=== PATIENT | male | born 1975 | race Caucasian/White ===

== ENCOUNTER 2022-11-01 20:01 | Emergency (ER) | payer OTHER, SELFPAY ==
[2022-11-01 20:03] VITALS: BP 146/76; PULSE 85; RESP 20; TEMP 36.2; O2SAT 100
[2022-11-01] MEDS: KETOROLAC (*BKC) 60 MG/2 ML VIAL IM (21:51)
--- NOTE | 2022-11-01 22:25 | ED.LOWEXIN ---
HPI - Extremity Injury (Lower) General Chief Complaint: Extremity Injury, Lower Stated Complaint: left leg injury Time Seen by Provider: 11/01/22 20:51 Source: patient Mode of arrival: ambulatory Limitations: no limitations History of Present Illness HPI Narrative: Patient is a 47-year-old male who presents ED with report of left upper thigh pain. Patient reports he strained his left hamstring 3 weeks ago. He has been treating this himself and avoiding strenuous activity. Tonight, he attempted to go bowling. When he stepped with his left foot to bowl, he felt a pop in his left upper thigh. He had severe pain in his left upper thigh after that, just below his left gluteal crease. He has been able to ambulate since then, but has pain with this. He has not taken anything for pain. He did not fall. No numbness, tingling. Related Data Home Medications Medication Instructions Recorded Confirmed atenolol 25 mg tablet 25 mg PO DAILY 06/15/22 10/12/22 pravastatin 20 mg tablet 20 mg PO DAILY 06/15/22 10/12/22 Allergies Allergy/AdvReac Type Severity Reaction Status Date / Time No Known Allergies Allergy Mild Verified 11/01/22 20:43 Review of Systems Review of Systems: CONSTITUTIONAL: Denies fever, chills, or sweats. MUSCULOSKELETAL: See HPI. NEUROLOGIC: Denies tingling, numbness, or weakness. All systems reviewed & are unremarkable except as noted in HPI and below PMFSH Past Medical History Medical History HTN (hypertension) Hypercholesterolemia Surgical History Surgical History H/O hernia repair 1980 History of carpal tunnel surgery bilateral, 2006 Family History Family History Mother Hypertension Father Hypertension Mother Heart disease Father Heart disease Grandparent Heart disease Social History Social History Smoking status: Never smoker Exam Narrative: GENERAL: Well appearing, morbidly obese, non-toxic, in no acute distress. HEAD: Normocephalic, atraumatic. NECK: Supple. No adenopathy, no masses. RESPIRATORY: Airway patent, respirations nonlabored. CARDIOVASCULAR: Regular rate and rhythm without murmurs, rubs, or gallops. Pedal pulses 2+ and equal bilaterally. MUSCULOSKELETAL: Moves all extremities. Somewhat limited flexion to left hip due to discomfort. Tenderness to palpation over left posterior thigh, just distal to gluteal fold, at insertion site of hamstring muscles. More tenderness medially. No palpable muscle deformity. No tenderness to anterior/posterior knee. SKIN: Warm, dry, normal color. No rashes. NEURO: A&O X3. Speech clear. Cranial nerves II-XII grossly intact. No ataxic movements. PSYCHIATRIC: Appropriate mood and affect. Normal interaction. Course Vital Signs Vital signs: Vital Signs Temperature 97.1 F L 11/01/22 20:03 Pulse Rate 85 11/01/22 20:03 Respiratory Rate 20 11/01/22 20:03 Blood Pressure 146/76 H 11/01/22 20:03 Pulse Oximetry 100 11/01/22 20:03 Oxygen Delivery Room Air 11/01/22 20:03 Temperature 97.1 F L 11/01/22 20:03 Pulse Rate 85 11/01/22 20:03 Respiratory Rate 20 11/01/22 20:03 Blood Pressure 146/76 H 11/01/22 20:03 Pulse Oximetry 100 11/01/22 20:03 Oxygen Delivery Room Air 11/01/22 20:03 MDM - Extremity Injury (Lower) MDM Narrative Medical decision making narrative: Patient's injury is consistent with musculoskeletal etiology. No signs of neurologic or vascular compromise on physical examination. Compartments are soft without signs of compartment syndrome. Pain is consistent with exam and injury. No direct injury to suggest need for imaging right now. Patient has been ambulatory since the incident. Discussed likelihood of hamstring muscle strain/sprain/tear vs
== END 2022-11-01 23:00 | disposition home or self-care (01) ==
PROVIDERS: Emergency Provider Physician Assistant
DX: S76.312A Strain of muscle, fascia and tendon of the posterior muscle group at thigh level, left thigh, initial encounter (principal); I10 Essential (primary) hypertension; E78.00 Pure hypercholesterolemia, unspecified; X50.9XXA Other and unspecified overexertion or strenuous movements or postures, initial encounter; Y93.54 Activity, bowling
CPT/HCPCS: 96372; 99283; J1885